=== PATIENT | female | born 1935 | race Caucasian/White ===

== ENCOUNTER → 2018-01-08 | Outpatient (CLI) | payer MEDICARE ==
[~2018-01-08] MED LIST: ESTROGEN; PRAS1TAB2 PO; PREGNENOLONE; PROGESTERONE; THYR60TA PO
== END | disposition home or self-care (01) ==
LOC: CFH 15:32
PROVIDERS: ATTEND Internal Medicine
DX: J47.9 Bronchiectasis, uncomplicated (principal)
CPT/HCPCS: 71250

== ENCOUNTER → 2019-03-24 | Outpatient (CLI) | payer MEDICARE | END | disposition home or self-care (01) | LOC: CFH 14:21 → EDSTATUS 15:00 | PROVIDERS: ATTEND Family Medicine | DX: M48.54XA Collapsed vertebra, not elsewhere classified, thoracic region, initial encounter for fracture (principal); M48.04 Spinal stenosis, thoracic region; M40.294 Other kyphosis, thoracic region; G95.19 Other vascular myelopathies; M47.814 Spondylosis without myelopathy or radiculopathy, thoracic region | CPT/HCPCS: 72146 ==

== ENCOUNTER 2019-04-02 13:50 | Outpatient (CLI) | payer MEDICARE ==
[2019-04-15] MEDS ORDERED: OMEP-110 PO (10:34)
[2019-04-15] MEDS ORDERED: LIDO700A20 TD (10:34)
[2019-04-15] MEDS ORDERED: DOCU-131 PO (10:34)
[2019-04-15] MEDS ORDERED: GUAI200T3 PO (10:34)
== END 2019-04-02 23:59 | disposition home or self-care (01) ==
LOC: RAD 13:50
PROVIDERS: ATTEND Family Medicine
DX: Z02.9 Encounter for administrative examinations, unspecified (principal)
CPT/HCPCS: 22513

== ENCOUNTER 2019-04-06 12:39 | Day surgery (SDC) | payer MEDICARE ==
[~2019-04-06] VITALS: Ht 160 cm; Wt 62.3 kg
[2019-04-06] MEDS ORDERED: LACTATED RINGERS 1,000 ML IV SCH (13:35)
[2019-04-06] MEDS ORDERED: UMEC1DIS INH (13:38)
[2019-04-06] MEDS ORDERED: LATA2.5D3 EACHEYE (13:38)
[2019-04-06] MEDS ORDERED: NAPR-685 PO (13:38)
[2019-04-06 13:40] VITALS: BP 146/98
[2019-04-06] MEDS ORDERED: PLEASE ENTER HEIGHT AND WEIGHT MC SCH (14:00)
[2019-04-06] MEDS ORDERED: VANCOMYCIN PER PHARMACY MC ONE (14:11)
[2019-04-06] MEDS ORDERED: VANCOMYCIN 1,200 MG in SODIUM CHLORIDE 0.9% 250 ML IV ONE (14:30)
[2019-04-06] MEDS ORDERED: DEXAMETHASONE 4 MG/ML, 1ML ONE (14:35)
[2019-04-06] MEDS ORDERED: GLYCOPYRROLATE 0.2MG/1ML, 5ML ONE (14:35)
[2019-04-06] MEDS ORDERED: ROCURONIUM 10 MG/ML,10ML ONE (14:35)
[2019-04-06] MEDS ORDERED: ONDANSETRON 2MG/ML, 2ML ONE (14:35)
[2019-04-06] MEDS ORDERED: NEOSTIGMINE 1 MG/ML, 10ML ONE (14:35)
[2019-04-06] MEDS ORDERED: CEFAZOLIN 1,000 MG ONE (14:35)
[2019-04-06] MEDS ORDERED: PROPOFOL 10 MG/ML, 20ML ONE (14:35)
[2019-04-06] MEDS ORDERED: LIDOCAINE 1%, 20ML ONE (14:48)
[2019-04-06] MEDS ORDERED: LABETALOL 5MG/ML, 20ML IV PRN (16:30)
[2019-04-06] MEDS ORDERED: ALBUTEROL SULFATE 2.5 MG/3 ML NPPB PRN (16:30)
[2019-04-06] MEDS ORDERED: FENTANYL PF 100 MCG/2ML IV PRN (16:30)
[2019-04-06] MEDS ORDERED: hydrALAzine 20 MG/ML, 1ML IV PRN (16:30)
[2019-04-06] MEDS ORDERED: HYDROmorphone 2 MG/ML, 1ML IVPush PRN (16:30)
[2019-04-06] MEDS ORDERED: OXYcodone 5 MG/5 ML ORAL.SOL UDC PO PRN (16:30)
[2019-04-06] MEDS ORDERED: HALOPERIDOL 5 MG/ML IV PRN (16:30)
[2019-04-06] MEDS ORDERED: PROMETHAZINE 25 MG/ML, 1ML IV PRN (16:30)
== END 2019-04-06 20:05 | disposition home or self-care (01) ==
LOC: RAD 12:39 → 4NOR 17:17 → RAD 17:18
PROVIDERS: ATTEND Family Medicine
DX: M80.08XA Age-related osteoporosis with current pathological fracture, vertebra(e), initial encounter for fracture (principal); Z79.890 Hormone replacement therapy; Z79.899 Other long term (current) drug therapy; Z88.0 Allergy status to penicillin; Z88.2 Allergy status to sulfonamides; Z88.8 Allergy status to other drugs, medicaments and biological substances; Z96.643 Presence of artificial hip joint, bilateral; Z98.890 Other specified postprocedural states
CPT/HCPCS: 22513; 93005; C1713; J0690; J1100; J2405; J2704; J2710; G0378

== ENCOUNTER → 2019-04-26 | Outpatient (CLI) | payer MEDICARE ==
[~2019-04-26] MED LIST changes: +DOCU-131 PO; +GUAI200T3 PO; +LATA2.5D3 EACHEYE; +LIDO700A20 TD; +NAPR-685 PO; +OMEP-110 PO; +UMEC1DIS INH
== END | disposition home or self-care (01) ==
LOC: RAD 15:24
PROVIDERS: ATTEND Family Medicine
DX: M48.56XA Collapsed vertebra, not elsewhere classified, lumbar region, initial encounter for fracture (principal); M54.9 Dorsalgia, unspecified
CPT/HCPCS: 72072; 72110

== ENCOUNTER → 2019-08-13 | Outpatient (CLI) | payer MEDICARE ==
[~2019-08-13] MED LIST changes: -GUAI200T3 PO; +GUAI200T37 PO; +TERI2.4P SC
[2019-08-13 14:36] LABS: BASOPHILS # (AUTO) 0.07 x10^3/uL (0-0.1); BASOPHILS % (AUTO) 1 % (0-1); EOSINOPHILS # (AUTO) 0.35 x10^3/uL (0-0.4); EOSINOPHILS % (AUTO) 4 % (1-7); LYMPHOCYTES # (AUTO) 0.67 x10^3/uL (1-3.4); LYMPHOCYTES % (AUTO) 8 % (22-44); MD NO; MEAN CORPUSCULAR HEMOGLOBIN 28.3 pg (27.0-34.8); MEAN CORPUSCULAR HGB CONC 32.1 g/dL (32.4-35.8); MEAN CORPUSCULAR VOLUME 88.1 fL (80-100); MEAN PLATELET VOLUME 6.8 fL (7.4-10.4); MONOCYTES # (AUTO) 0.68 x10^3/uL (0.2-0.8); MONOCYTES % (AUTO) 8 % (2-9); NEUTROPHILS # (AUTO) 7.16 x10^3/uL (1.8-6.8); NEUTROPHILS % (AUTO) 80 % (42-75); PLATELET COUNT 574 x10^3/uL (130-400); RED BLOOD COUNT 4.21 x10^6/uL (3.82-5.3)
[2019-08-13 14:45] LABS: ANION GAP 7 mmol/L (5-15); CALCIUM 8.3 mg/dL (8.5-10.1); CHLORIDE 106 mmol/L (98-107); CREATININE 0.79 mg/dL (0.55-1.02)
[2019-08-13 14:49] LABS: MICROSCOPIC NOT IND
[2019-08-13 14:52] LABS: CULTURE INDICATED? NO
[2019-08-13 15:09] LABS: INTERNATIONAL NORMALIZED RATIO 0.98 (0.93-1.1); PROTHROMBIN TIME 10.3 Seconds (9.6-11.5)
== END | disposition home or self-care (01) ==
LOC: STAR 13:31
PROVIDERS: ATTEND Neurological Surgery
DX: Z01.810 Encounter for preprocedural cardiovascular examination (principal); M48.061 Spinal stenosis, lumbar region without neurogenic claudication; M51.36 Other intervertebral disc degeneration, lumbar region; M85.88 Other specified disorders of bone density and structure, other site
CPT/HCPCS: 36415; 71046; 72110; 80048; 81003; 85025; 85610; 85730; 93005